=== PATIENT | female | born 1980 | race Caucasian/White ===

== ENCOUNTER → 2020-11-23 16:15 | Outpatient (CLI) | payer BC, SELFPAY ==
--- NOTE | ~2020-11-23 | MM_ITS ---
EXAMINATION: MM screening betsy BI w salome HISTORY: Screening mammogram TECHNIQUE: Craniocaudal and mediolateral oblique 3-D tomosynthesis images were obtained and synthetic 2-D images were generated. CAD analysis was submitted and interpreted. COMPARISON: None, baseline BREAST PARENCHYMAL COMPOSITION: There are scattered areas of fibroglandular density. FINDINGS: RIGHT BREAST: There is no evidence of suspicious mass, calcification, or architectural distortion to suggest malignancy. LEFT BREAST: Focal asymmetry is present in the middle/posterior third of the lower, slightly outer br east. IMPRESSION: 1. Focal asymmetry of the left breast. 2. Additional mammographic views and possible breast ultrasound are recommended to evaluate for malig vinny and establish a baseline given that this is the first mammographic examination. BI-RADS Category 0: Incomplete: Needs additional imaging evaluation. Reviewed, dictated and finalized at location A. IMPRESSION: 1. Focal asymmetry of the left breast. 2. Additional mammographic views and possible breast ultrasound are recommended to evaluate for malignancy and establish a baseline given that this is the fir st mammographic examination. BI-RADS Category 0: Incomplete: Needs additional imaging evaluation.
== END ==
PROVIDERS: Visit Provider Nurse Practitioner
DX: Z12.31 Encounter for screening mammogram for malignant neoplasm of breast (principal); R92.8 Other abnormal and inconclusive findings on diagnostic imaging of breast
CPT/HCPCS: 77063; 77067

== ENCOUNTER → 2020-12-23 09:58 | Outpatient (CLI) | payer BC, SELFPAY ==
--- NOTE | ~2020-12-23 | MM_ITS ---
EXAMINATION: MM diagnostic mammo unilat LT HISTORY: Focal asymmetry of the left breast Baseline screening mammogram TECHNIQUE: Additional 3-D tomosynthesis images of the left breast were performed and synthetic 2-D im ages were generated. CAD analysis was submitted and interpreted. COMPARISON: 11/23/2020 BREAST PARENCHYMAL COMPOSITION: There are scattered areas of fibroglandular density. FINDINGS: With spot compression, the focal asymmetry described lower outer left breast screening mamm ogram has an appearance similar to normal fibroglandular tissue. No suspicious calcification or archi tectural distortion are identified. IMPRESSION: 1. No mammographic evidence of malignancy. 2. Recommend routine screening mammography in one year. BI-RADS Category 1: Negative Reviewed, dictated and finalized at location A.
== END ==
PROVIDERS: PCP Nurse Practitioner; Visit Provider Nurse Practitioner
DX: R92.8 Other abnormal and inconclusive findings on diagnostic imaging of breast (principal)
CPT/HCPCS: 77065

== ENCOUNTER 2021-07-26 01:57 | Day surgery (SDC) | payer BC, SELFPAY ==
[2021-07-01 13:45] VITALS: BMI 45.2
--- NOTE | 2021-07-01 14:01 | PC.NURSE ---
Patient states she tested positive for COVID on 06/24. Informed her that she will need to be rescheduled 4 weeks out from her positive COVID test. Handed report to Janice who will contact patient to reschedule and gather tests results.
--- NOTE | 2021-07-23 14:56 | PM.HPGS ---
History of Present Illness History of Present Illness Consent: Risks, benefits, and alternatives have been discussed and questions answered. Patient agrees to proceed with procedure. Chief complaint: rectal bleedding Narrative: Bree Donaldson is a 40 year old female with a change in bowel habits and blood in her stools. She has had issues lately with constipation and on off has had rectal bleeding for the past several months. Review of Systems Review of Systems: All systems reviewed & are unremarkable except as noted in HPI and below PMFSH Past Medical History Medical History Generalized anxiety disorder Hyperlipidemia Migraines Vitamin D deficiency Surgical History Surgical History History of section History of cholecystectomy Family History Family History Other Diabetes mellitus Family history of cardiovascular disease Hypertension Social History Social History Smoking status: Never smoker Second hand tobacco smoke exposure: No Alcohol intake: current Alcohol use details: on occasion Substance use: never Substance use type: does not use Living arrangements: with family Meds Home Medications and Allergies Home Medications Medication Instructions Recorded Confirmed Type duloxetine 30 mg capsule,delayed 30 mg PO DAILY #90 cap 01/22/21 07/26/21 Rx release montelukast 10 mg tablet 10 mg PO DAILY #90 tablet 01/22/21 07/26/21 Rx eletriptan 20 mg tablet See Rx Instructions PO .COMPLEX #6 04/16/21 07/26/21 Rx tablet liraglutide (weight loss) 3 mg/0.5 0.6 mg SUBCUT DAILY 05/28/21 07/26/21 History mL (18 mg/3 mL) subcut pen injector Allergies Allergy/AdvReac Type Severity Reaction Status Date / Time Penicillins Allergy Intermediate Rash Verified 07/26/21 08:09 Exam Resp: Auscultation: clear to auscultation bilaterally Cardio: Rate: regular rate Rhythm: regular rhythm GI: GI Palp: Yes Soft to palpation and No Tenderness to palpation present (GI) Assessment and Plan Assessment and plan (1) Blood in stool: Code(s): K92.1 - Melena Status: Acute Assessment and Plan: Colonoscopy with possible biopsy or polypectomy or cautery or injection of substances.
[2021-07-26 08:11] VITALS: BP 120/74; PULSE 83; RESP 16; TEMP 36.5; O2SAT 97
[2021-07-26] MEDS: LACTATED RINGERS 1,000 ML 150 ML IV CONT (08:25)
[2021-07-26 09:09] VITALS: BP 110/75; PULSE 79; RESP 19; O2SAT 98
[2021-07-26 09:19] VITALS: BP 107/75; PULSE 76; RESP 19; O2SAT 99
[2021-07-26 09:29] VITALS: BP 112/78; PULSE 70; RESP 20; O2SAT 100
== END 2021-07-26 09:39 | disposition home or self-care (01) ==
PROVIDERS: PCP Nurse Practitioner; Visit Provider Internal Medicine Gastroenterology
PROC: 0DJD8ZZ Inspection of Lower Intestinal Tract, Via Natural or Artificial Opening Endoscopic (ICD-10-PCS; CPT 45378; principal; 2021-07-26 09:00)
DX: R19.7 Diarrhea, unspecified (principal); K59.00 Constipation, unspecified; K92.1 Melena; K64.8 Other hemorrhoids; E78.5 Hyperlipidemia, unspecified; E55.9 Vitamin D deficiency, unspecified; F41.1 Generalized anxiety disorder
CPT/HCPCS: 45378; J2704; J7120

== ENCOUNTER 2023-09-19 07:04 | Outpatient (CLI) | payer BC, SELFPAY ==
[2023-09-19 07:31] LABS: Hematocrit 38.1 % (37.0-47.0); Hemoglobin 12.5 g/dL (12.0-15.0); Mean Corpuscular HGB Conc 32.8 g/dl (32-36); Mean Corpuscular Hemoglobin 30.5 pg (26-34); Mean Corpuscular Volume 92.9 fl (80-100); Mean Platelet Volume 9.6 fl (7.4-10.4); Platelet Count Result 324 k/mm3 (150-375); Red Cell Distribution Width 12.3 % (11.5-14.5); White Blood Count 5.5 K/mm3 (4.5-10.0)
[2023-09-19 07:49] LABS: Albumin Level 4.2 g/dL (3.5-5.1); Anion Gap 6 mmol/L (4-12); Blood Urea Nitrogen 13 mg/dL (7-17); Calcium 9.2 mg/dL (8.4-10.2); Carbon Dioxide 27 mmol/L (22-30); Chloride 104 mmol/L (98-107); Estimated Glomerular Filt Rate > 60; Glucose 97 mg/dL (65-110); Potassium 4.1 mmol/L (3.4-5.0); Sodium 137 mmol/L (137-145)
[2023-09-19 07:52] LABS: Iron 162 ug/dL (37-170)
[2023-09-22 14:32] LABS: Vitamin B1 8 nmol/L (8-30)
== END 2023-09-19 07:05 | disposition home or self-care (01) ==
LOC: ANHLAB 07:06
PROVIDERS: PCP Nurse Practitioner; Visit Provider Surgery Plastic and Reconstructive Surgery
DX: R63.4 Abnormal weight loss (principal)
CPT/HCPCS: 36415; 80048; 82040; 83540; 84134; 84425; 85027

== ENCOUNTER 2023-10-11 13:08 | Outpatient (CLI) | payer OTHER, SELFPAY ==
--- NOTE | 2023-10-11 13:26 | ECG_ITS ---
SEE SCANNED COPY FOR CONFIRMED REPORT. MTDD
== END 2023-10-11 13:09 | disposition home or self-care (01) ==
LOC: ANHSURGERY 13:12
PROVIDERS: Visit Provider Surgery Plastic and Reconstructive Surgery
DX: Z41.1 Encounter for cosmetic surgery (principal)
CPT/HCPCS: 93005

== ENCOUNTER 2023-10-13 01:38 | Day surgery (SDC) | payer OTHER, SELFPAY ==
[2023-10-10 12:42] VITALS: BMI 32.9
--- NOTE | 2023-10-10 12:48 | PC.NURSE ---
Report to the Outpatient Waiting Room, entrance under the green pavilion located off [facility], at time _0630_ on date _[id number]_. Planned Procedure Time: _0830_. Time changes happen often and if your time is changed the preop area will call you the afternoon before. - You and your visitor will be asked to self-screen and do not enter if you have any COVID symptoms. - A mask is optional within the hospital at this time. Patients may have clear liquids (water, carbonated beverages, clear teas, apple juice) until 3 hours prior to surgery with a maximum of 20 ounces. - No food from midnight until time of surgery Take the following medications with a SIP of water the morning of surgery: __Duloxetine DO NOT STOP ANY OF YOUR OTHER PRESCRIPTION MEDICATIONS PRIOR TO SURGERY ?EXCEPT THE FOLLOWING Medications to discontinue per physician ____patient stopped Semaglutide 08-26-2023 for surgery. Date to take last dose Please no make-up, nail finnish, hairspray, perfume, deodorant, or body powder the day of surgery. No jewelry (including any body piercings) or valuables the day of surgery, leave them at home. Please take a shower or bath the night before, or the morning of, surgery with an antibacterial soap. Wear comfortable, loose fitting clothing. - Jewelry must be removed prior to entering the operating room. Rings and piercings that are not removed may be cut off. - The hospital will not accept responsibility for valuables. - Please leave all valuables, including medications, at home the day of surgery. If you are going home after surgery, a licensed coal tram driver must drive you home. - NO public transportation without another adult if you receive anesthesia. - We recommend that an adult stay with you for 24 hours following discharge. - We also recommend that you do not drive, make important decision, drink alcoholic beverages, or take any drugs that were not prescribed by your health care provider for at least 24 hours after your discharge time. Follow any additional instructions given to you from your surgeon. If you or anyone in your household have experienced Covid symptoms in the past week, please notify your surgeon or the nurse liaison at the phone number below for possible testing. Telephone instructions given to _Bree__and asked if any additional questions and then verbalized understanding. Patient advised to call surgeon office or pre surgery nurse liaison [phone] if any additional questions.
[2023-10-13] VITALS (10 sets, daily range): BP systolic 106–157; BP diastolic 75–92; PULSE 70–93; RESP 14–18; TEMP 36.2–36.9; O2SAT 95–100
[2023-10-13 06:55] LABS: Urine Cotinine NEGATIVE
[2023-10-13] MEDS: LACTATED RINGERS 1,000 ML 30 ML IV CONT ×2 (07:24→15:52)
--- NOTE | 2023-10-13 07:26 | WPDANESEPPF ---
Anes - Initial Pre Proc Eval Procedure: Operation Date: 10/13/23 08:30 Proposed Procedures p Bilateral Brachioplasty - Perry Webber MD s Bilateral Breast Augmentation with Excision of Bra Roll - Perry Webber MD s Bilateral Breast Mastopexy with Galaflex - Perry Webber MD Date/Time: 10/13/23 07:26 Surgeon: Perry Webber MD Pre Op Diagnosis: Breast Ptosis, Skin Laxity Patient Data Age: 43 Gender: F Height: 1.7 m Weight: 97 kg Last Vital Signs Temp 97.2 F L 10/13/23 07:21 Pulse 77 10/13/23 07:21 Resp 18 10/13/23 07:21 BP 106/75 10/13/23 07:21 Pulse Ox 100 10/13/23 07:21 O2 Del Method Room Air 10/13/23 07:21 Allergies Allergy/AdvReac Type Severity Reaction Status Date / Time Penicillins Allergy Intermediate Rash Verified 10/10/23 12:40 Home Medications Medication Instructions Recorded Confirmed Type ondansetron 4 mg disintegrating 4 mg PO Q6H PRN vertigo #30 tabs 08/06/21 10/10/23 Rx tablet duloxetine 30 mg capsule,delayed 30 mg PO DAILY #90 caps 12/22/21 10/10/23 Rx release eletriptan 20 mg tablet See Rx Instructions .Route 05/09/22 10/10/23 Rx .COMPLEX #6 tabs montelukast 10 mg tablet 10 mg PO DAILY #30 tabs 12/07/22 10/10/23 Rx semaglutide (weight loss) 2.4 2.4 mg subcut WEEKLY 10/10/23 10/10/23 History mg/0.75 mL subcutaneous pen injector (Wegovy) Laboratory Tests 10/13/23 06:39 Cotinine Negative Patient hx anesthesia problems: none Family hx anesthesia problems: none Results Review: All pre-operative results and documents have been reviewed as part of the pre-operative evaluation. [facility] Past Medical History Medical History BPPV (benign paroxysmal positional vertigo) Generalized anxiety disorder Hyperlipidemia Migraines Vitamin D deficiency Surgical History Surgical History History of section History of cholecystectomy Family History Family History Other Diabetes mellitus Family history of cardiovascular disease Hypertension Social History Social History Smoking status: Never smoker Second hand tobacco smoke exposure: No Alcohol intake: current Alcohol use details: on occasion Substance use: never Substance use type: does not use Living arrangements: with family Spiritual care concerns: No Anes - Eval Final PreProcedure Day of Procedure 10/13/23 07:26 Patient weight: obese Heart: regular rate and rhythm Lungs: clear to auscultation Airway: Mallampati scale class II Neurological: alert and oriented Last oral intake: >/= 8 hours ASA classification: III Emergent: no Anesthetic plan: proceed Anesthesia type and monitoring: general ETT and standard monitoring Results Review: All pre-operative results and documents have been reviewed as part of the pre-operative evaluation. Informed Consent: The patient's anesthetic plan and its attendant risks and benefits were discussed with the patient/family/POA. Questions were solicited and answers provided to the satisfaction of the patient/family/POA.
--- NOTE | 2023-10-13 08:41 | WPDHPUPDATE1 ---
History and Physical Update Update Date/Time: 10/13/23 08:41 History and Physical has been reviewed, including an updated exam of the patient. There are NO changes in the patient's condition. Risks, benefits, and alternatives have been discussed and questions answered. Patient agrees to proceed with procedure.
--- NOTE | 2023-10-13 08:44 | W.PM.PROC2 ---
Procedure Note - Detailed Date of Procedure 10/13/23 Pre-op Diagnosis Breast Ptosis, Skin Laxity Post-op Diagnosis Same Procedure Performed 1. Bilateral Augmentation Mammaplasty with Galaflex 2. Bilateral Brachioplasty 3. Bilateral bra roll excision Surgeon Perry Webber MD Anesthesia General Findings Bilateral Suyapa SoftTouch 490cc Right - REF# [id number] SN [sn] Left - REF# [id number] SN [sn] Inverted T Superior medial pedicle Lipoaspirate: [cc] cc Tissue removed: [grams] grams Description of Procedure She is here today for the above. Previously and again today the risks, benefits, alternatives were discussed in extensive detail. I wanted her to be very realistic about the risks involved as well as expectations. We discussed aftercare and what to monitor for. Made sure answered all of her questions to her satisfaction today and consent was obtained. Marked in the preoperative holding area with their verification. The patient was taken to the operating room. Anesthesia provided by anesthesiology. Transferred prone on the operating room table with care taken to protect from injury. Prepped and draped in a standard sterile fashion. Surgical time out was taken. Bra Roll Stab incisions were made and I tumesced with a tumescent solution. Once adequate time for hemostasis suction lipectomy was with a 4 mm basket cannula based on S.A.F.E. technique. This was completed based on preoperative planning, intraoperative observation, and rolling pinch test which was in full agreement. A 10 blade was used to make the upper excision elevating inferior. I verified the planned resection and a 10 blade was used to complete this. This was closed using 2-0 PDS 3 point sutures, 2-0 Quill, 3-0 strata fix, running subcuticular 4-0 Monocryl, and tissue glue. Brachioplasty She was returned supine with care taken to protect from injury and prepped and draped in standard sterile fashion. Stab incisions were made and I tumesced with a tumescent solution. Once adequate time for hemostasis suction lipectomy was with a 4 mm basket cannula based on S.A.F.E. technique. This was completed based on preoperative planning, intraoperative observation, and rolling pinch test which was in full agreement. I completely de-fatted the planned resection area and a strip avulsion technique was completed. Starting proximal to distal a 10 blade was used to excise the intervening skin and this was tacked as we proceed to ensure good closure. This was closed using a 2-0 Quill, 3-0 strata fix, running subcuticular 4-0 Monocryl, and tissue glue. Breast I changed completely to ensure sterility. Tegaderm nipple Cosby were placed. A 15 blade used to make an incision just superior to the inframammary fold leaving a cusp of de-epithelized tissue at the t junction. Dissection was continued until the chest wall as identified. I incised the pectoralis major along its inferior border and completely released the inferior border leaving the medial border intact. I created a subpectoral pocket in the appropriate dimensions based on our preoperative planning for the implant. I then copiously irrigated with saline solution and verified a strict hemostasis. Next the use a triple antibiotic and Betadine containing solution to irrigate the pocket. I washed my gloves with the triple antibiotic and Betadine solution. We washed the implant immediately upon opening it with this solution and only opened it when we needed it. I used implant funnel and no-touch technique. The implant was introduced into the pocket using the funnel. Having verified positioning of the implant this was closed using 2-0 PDS. I tailor tacked the breast into position. Placed her in a sitting position. Verified the nipple-areolar location based on preoperative planning as well as intraoperative observations and measurements in full agreement. She was placed supine. I de-epithelialized the
[2023-10-13] MEDS: TRANEXAMIC ACID 1,000MG/ISO100 1,000 MG/100 ML BAG 200 MG IVPB (08:57)
[2023-10-13] MEDS: ceFAZolin 2 GM/D5W 50 ML 2 GM/50 ML BAG IVPB (09:32)
[2023-10-13] MEDS: NACL 0.9% IRRIG POUR BOTTLE 900 ML, GENTAMICIN SULFATE INJ 160 MG, CLINDAMYCIN PHOS INJ... IRRIGATION (09:42)
--- NOTE | 2023-10-13 11:31 | SUR.OPER ---
posterior back [id number] to [id number]
--- NOTE | 2023-10-13 11:50 | SUR.OPER ---
right breast implant to sterile field 1135 left breast implant to sterile field 1159
--- NOTE | 2023-10-13 11:56 | SUR.OPER ---
galflex scaffold lot [id number], EXP 2024-10-09, REF [id number] TO THE [facility] FIELD [facility]
[2023-10-13] MEDS: ceFAZolin SODIUM 1 GM VIAL 2 GM IV PUSH (13:30)
[2023-10-13] MEDS: LACTATED RINGERS IRRIG 1,000 ML, LIDOCAINE HCL 1% LOCAL INJ 50 ML, EPINEPHrine HCL INJ ... INFILTRATE (14:02)
--- NOTE | 2023-10-13 15:47 | W.PM.PROC2 ---
Procedure Note - Detailed Date of Procedure 10/13/23 Pre-op Diagnosis Breast Ptosis, Skin Laxity Post-op Diagnosis Same Procedure Performed 1.? Bilateral Augmentation Mastopexy with Galaflex 2.? Bilateral Brachioplasty 3.? Bilateral bra roll excision Surgeon Perry Webber MD Anesthesia General Findings Bilateral Suyapa SoftTouch 490cc Right - REF# SSLP-490 SN [id number] Left - REF# SSLP-490 SN [id number] Inverted T Superior pedicle Lipoaspirate: 2,000 cc Tissue removed: 1,303 grams Description of Procedure She is here today for the above.? Previously and again today the risks, benefits, alternatives were discussed in extensive detail.? I wanted her to be very realistic about the risks involved as well as expectations.? We discussed aftercare and what to monitor for.? Made sure answered all of her questions to her satisfaction today and consent was obtained. Marked in the preoperative holding area with their verification.? The patient was taken to the operating room.? Anesthesia provided by anesthesiology.? Transferred prone on the operating room table with care taken to protect from injury.? Prepped and draped in a standard sterile fashion. Surgical time out was taken. Bra Roll Stab incisions were made and I tumesced with a tumescent solution.? Once adequate time for hemostasis suction lipectomy was with a 4 mm basket cannula based on S.A.F.E. technique.? This was completed based on preoperative planning, intraoperative observation, and rolling pinch test which was in full agreement.? A 10 blade was used to make the upper excision elevating inferior.? I verified the planned resection and a 10 blade was used to complete this.? This was closed using 2-0 PDS 3 point sutures, 2-0 Quill, 3-0 strata fix, running subcuticular 4-0 Monocryl, and tissue glue. She was returned supine with care taken to protect from injury and prepped and draped in standard sterile fashion. Breast Tegaderm nipple Cosby were placed.? A 15 blade used to make an incision just superior to the inframammary fold leaving a cusp of de-epithelized tissue at the t junction.? Dissection was continued until the chest wall as identified.? I incised the pectoralis major along its inferior border and completely released the inferior border leaving the medial border intact. I created a subpectoral pocket in the appropriate dimensions based on our preoperative planning for the implant. I then copiously irrigated with saline solution and verified a strict hemostasis. Next the use a triple antibiotic and Betadine containing solution to irrigate the pocket.? I washed my gloves with the triple antibiotic and Betadine solution.? We washed the implant immediately upon opening it with this solution and only opened it when we needed it.? I used implant funnel and no-touch technique. The implant was introduced into the pocket using the funnel.? Having verified positioning of the implant this was closed using 2-0 PDS. I tailor tacked the breast into position.? Placed her in a sitting position.? Verified the nipple-areolar location based on preoperative planning as well as intraoperative observations and measurements in full agreement.? She was placed supine.? I de-epithelialized the pedicle.? I then removed the inferior central portion of the breast need making sure the implant was well protected.? I elevated medial and lateral tissue flaps as well for planned closure. Galaflex was soaking on the back table.? It was trimmed and sutured into place with 2-0 Vicryl. I closed along the IMF with 2-0 Stratafix.? Along the vertical with 2-0 PDS.? I closed around the areola with 3-0 strata fix.? 3-0 Monocryl along the vertical.? 3-0 Stratafix along the IMF.? I finally closed everything with running subcuticular 4-0 Monocryl and tissue glue. Brachioplasty Stab incisions were made and I tumesced with a tumescent solution.? Once adequate time for hemostasis suction lipectomy was with a 4 mm basket
[2023-10-13] MEDS: fentaNYL CITRATE INJ (*CRX) 100 MCG/2 ML VIAL 25 MCG IV PUSH ×3 (16:10→16:35)
[2023-10-13] MEDS: ONDANSETRON INJ 4 MG/2 ML VIAL IV PUSH (16:13)
[2023-10-13] MEDS: diphenhydrAMINE HCl INJ 50 MG/ML VIAL 25 MG IV PUSH (16:28)
[2023-10-13] MEDS: SCOPOLAMINE 1 MG PATCH 1 PATCH TRANSDERM (17:31)
[2023-10-13] MEDS: diphenhydrAMINE HCl INJ 50 MG/ML VIAL 12.5 MG IV PUSH (17:34)
[2023-10-13] MEDS: KETOROLAC 15 MG/ML VIAL (*BKC) IV PUSH (17:40)
[2023-10-13] MEDS: oxyCODONE HCL (*CRX) 5 MG TAB IR PO (17:40)
--- NOTE | 2023-10-13 17:47 | SUR.PHASEII ---
1734 DR. RAE CALLED RE: TORADOL FOR PATIENT WHICH HE OKAY'D TO GIVE.
== END 2023-10-13 18:38 | disposition home or self-care (01) ==
PROVIDERS: Visit Provider Surgery Plastic and Reconstructive Surgery
PROC: (CPT 15836; principal; 2023-10-13 08:30)
PROC: (CPT 19325; 2023-10-13 08:30)
PROC: (CPT 19316; 2023-10-13 08:30)
DX: Z41.1 Encounter for cosmetic surgery (principal); N64.81 Ptosis of breast; L57.4 Cutis laxa senilis; E78.5 Hyperlipidemia, unspecified; F41.1 Generalized anxiety disorder; E66.9 Obesity, unspecified; Z68.33 Body mass index [BMI] 33.0-33.9, adult
CPT/HCPCS: 19325; 19316; 15777 ×2; 15836; 15839; 15878; 15877; 80307; A9270; J0171; J0690; J1170; J1200; J1580; J1885; J2250; J2405; J3010; J7120

== ENCOUNTER 2023-10-29 19:30 | Emergency (ER) | payer BC, SELFPAY ==
--- NOTE | ~2023-10-29 | CT_ITS ---
Clinical Indication: Shortness of breath CT Scan of the Chest with Contrast: Technique: Contiguous sections were acquired throughout the chest after intravenous administration of 100 cc of Omnipaque 350. Dose reduction technique was used on this scan by utilizing automated expos ure control and iterative reconstruction technique. The dose-length product (DLP) was 994.87 mGy-cm. Findings: There is no evidence of any significant mediastinal, hilar or axillary lymphadenopathy. There is no f illing defect in the pulmonary arterial tree to suggest pulmonary embolus. There is no evidence of ao rtic dissection or aneurysm. There is no evidence of pleural or pericardial effusion. The lungs are clear, aside from calcified right lower lobe granuloma. Images through the upper abdomen reveal no abnormalities. Impression: No evidence of pulmonary embolus, aortic dissection, or aortic aneurysm. No significant pulmonary abnormality. Reviewed, dictated and finalized at [facility]. Impression: No evidence of pulmonary embolus, aortic dissection, or aortic aneurysm. No significant pulmonary abnormality.
--- NOTE | ~2023-10-29 | XR_ITS ---
EXAMINATION: XR chest 2V Exam Date/Time: 10/29/2023 20:00 CDT HISTORY: sob, cp under left breast. recent cosmetic surgery to chest Comparison: CT abdomen pelvis 08/25/2017. RESULT: Lines, tubes, and devices: Cholecystectomy clips. Lungs and pleura: Clear. Calcified right midlung granuloma. Cardiomediastinal silhouette: Unremarkable. Other: No acute osseous or upper abdominal finding. IMPRESSION: No acute cardiopulmonary process. Reviewed, dictated and finalized at location K.
--- NOTE | 2023-10-29 19:31 | ECG_ITS ---
SEE SCANNED COPY FOR CONFIRMED REPORT. MTDD
[2023-10-29 19:54] VITALS: BP 126/87; PULSE 87; PULSE 88; RESP 22; TEMP 36.9; O2SAT 100
[2023-10-29 19:56] LABS: Basophils Absolute Auto 0.1 K/mm3 (0.0-0.1); Basophils Percent Auto 1.3 % (0.2-1.2); Eosinophils Absolute Auto 0.2 K/mm3 (0-0.3); Eosinophils Percent Auto 1.8 % (0-4.4); Hematocrit 35.8 % (37.0-47.0); Hemoglobin 12.1 g/dL (12.0-15.0); Immature Granulocyte Absolute 0.03 K/mm3 (0.00-0.031); Immature Granulocyte Percent A 0.3 % (0-0.5); Lymphocytes Absolute Auto 2.01 K/mm3 (0.9-3.2); Lymphocytes Percent Auto 22.9 % (18.3-44.2); Mean Corpuscular HGB Conc 33.8 g/dl (32-36); Mean Corpuscular Hemoglobin 30.8 pg (26-34); Mean Corpuscular Volume 91.1 fl (80-100); Mean Platelet Volume 9.5 fl (7.4-10.4); Monocytes Absolute Auto 0.7 K/mm3 (0.1-0.6); Monocytes Percent Auto 8.4 % (2.6-8.5); Neutrophils Absolute Auto 5.7 K/mm3 (1.3-6.7); Neutrophils Percent Auto 65.3 % (45.5-73.1); Platelet Count Result 380 k/mm3 (150-375); Red Blood Count 3.93 M/mm3 (4.2-5.4); White Blood Count 8.8 K/mm3 (4.5-10.0)
[2023-10-29 20:08] LABS: Alanine Aminotransferase 24 U/L (6-35); Albumin Level 4.4 g/dL (3.5-5.1); Alkaline Phosphatase 72 U/L (38-126); Anion Gap 10 mmol/L (4-12); Aspartate Amino Transferase 23 U/L (14-36); Bilirubin,Total 0.7 mg/dL (0.2-1.3); Blood Urea Nitrogen 13 mg/dL (7-17); Calcium 9.1 mg/dL (8.4-10.2); Carbon Dioxide 19 mmol/L (22-30); Chloride 105 mmol/L (98-107); Estimated CRCL calculation 143 ml/min; Estimated Glomerular Filt Rate > 60; Glucose 112 mg/dL (65-110); Potassium 3.8 mmol/L (3.4-5.0); Sodium 134 mmol/L (137-145)
[2023-10-29 20:23] LABS: Prothrombin Time 13.5 Seconds (11.1-14.7)
[2023-10-29 20:24] LABS: Partial Thromboplastin Time 30.7 Seconds (22.3-36.8)
[2023-10-29 20:25] VITALS: BP 110/88; PULSE 87; RESP 14; O2SAT 99
[2023-10-29 20:30] LABS: D Dimer 0.95 ug/mL (<0.48)
[2023-10-29 20:31] VITALS: BP 106/83; PULSE 83; RESP 15; O2SAT 99
[2023-10-29 20:46] LABS: Troponin I < 0.012 ng/mL (0.000-0.034)
--- NOTE | 2023-10-29 21:09 | ED.SOB ---
HPI - SOB/Dyspnea General Chief Complaint: Shortness of Breath/Dyspnea Stated Complaint: plastic surgery - sob with cp under left breast Time Seen by Provider: 10/29/23 19:44 Source: patient Mode of arrival: ambulatory Limitations: no limitations History of Present Illness HPI Narrative: This is a 43-year-old female that presents to the emergency department for shortness of breath. Ongoing since earlier this morning. Associated with pleuritic chest pain. Reports a recent plastic surgery. Presented to the ER out of concern for possible blood clot. Reports she was on Lovenox prophylactically for a week postop. She does not have personal history of blood clots, but has family history of this. Denies fevers, cough, or lower extremity edema. Related Data Home Medications Medication Instructions Recorded Confirmed semaglutide (weight loss) 2.4 2.4 mg subcut WEEKLY 10/10/23 10/10/23 mg/0.75 mL subcutaneous pen injector (Wegovy) Allergies Allergy/AdvReac Type Severity Reaction Status Date / Time Penicillins Allergy Intermediate Rash Verified 10/29/23 19:34 Review of Systems Review of Systems: CONSTITUTIONAL: Denies fever CARDIOVASCULAR: Reports chest pain. Denies edema. RESPIRATORY: Reports dyspnea. Denies cough All systems reviewed & are unremarkable except as noted in HPI and below PMFSH Past Medical History Medical History BPPV (benign paroxysmal positional vertigo) Generalized anxiety disorder Hyperlipidemia Migraines Vitamin D deficiency Surgical History Surgical History History of section History of cholecystectomy Family History Family History Other Diabetes mellitus Family history of cardiovascular disease Hypertension Social History Social History Smoking status: Never smoker Second hand tobacco smoke exposure: No Alcohol intake: current Alcohol use details: on occasion Substance use: never Substance use type: does not use Living arrangements: with family Spiritual care concerns: No Exam Narrative: GENERAL: Well-appearing, well-nourished, and in no acute distress. HEAD: Normocephalic, atraumatic. EYES: EOMI. NECK: No JVD CHEST: Clear to auscultation. No respiratory distress. No wheezes rales or rhonchi. Incisions are intact without abnormal drainage, or erythema HEART: Regular rate and rhythm. No murmur heard. Normal peripheral pulses. EXTREMITIES: Normal range of motion. No edema. SKIN: Warm, dry, no rash. NEURO: No focal deficits. Alert and oriented x3. PSYCH: Normal mood and affect Course Course Emergency Course: Patient updated on her workup and agrees with plan of care Vital Signs Vital signs: Vital Signs Temperature 98.5 F 10/29/23 19:54 Pulse Rate 88 10/29/23 19:54 Respiratory Rate 22 H 10/29/23 19:54 Blood Pressure 126/87 10/29/23 19:54 Pulse Oximetry 100 10/29/23 19:54 Oxygen Delivery Room Air 10/29/23 19:54 Temperature 98.5 F 10/29/23 19:54 Pulse Rate 79 10/30/23 00:35 Respiratory Rate 16 10/30/23 00:35 Blood Pressure 114/93 H 10/30/23 00:35 Pulse Oximetry 96 10/30/23 00:35 Oxygen Delivery Room Air 10/29/23 19:54 MDM - SOB/Dyspnea MDM Narrative Medical decision making narrative: Patient presents to the emergency department for shortness of breath and pleuritic chest pain after recent plastic surgery. Ongoing since earlier this morning. She is afebrile and nontoxic appearing. Her vitals are stable. Lungs are clear on exam. Oxygen saturation is normal on room air. CBC without leukocytosis. Metabolic panel with some evidence of mild dehydration. Patient given a L of IV fluids in the ED. D-dimer elevated, CTA of the chest obtained. No evidence for PE or acute ca
[2023-10-29] MEDS: SODIUM CHLORIDE 0.9% IV 1,000 ML 999 ML IV CONT (21:47)
[2023-10-29 21:53] VITALS: BP 105/85; PULSE 77; RESP 20; O2SAT 98
[2023-10-29 22:31] VITALS: BP 107/85; PULSE 78; RESP 20; O2SAT 100
[2023-10-30 00:35] VITALS: BP 114/93; PULSE 79; RESP 16; O2SAT 96
[2023-10-30] MEDS: KETOROLAC 15 MG/ML VIAL (*BKC) IV PUSH (01:17)
== END 2023-10-30 01:30 | disposition home or self-care (01) ==
PROVIDERS: Family Medicine; Emergency Provider Physician Assistant
DX: R07.9 Chest pain, unspecified (principal); F41.9 Anxiety disorder, unspecified; E78.5 Hyperlipidemia, unspecified
CPT/HCPCS: 36415; 71046; 71275; 80053; 81025; 84484; 85025; 85380; 85610; 85730; 93005; 96361; 96374; 99284; J1885; J7030; Q9967

== ENCOUNTER 2024-03-15 04:25 | Day surgery (SDC) | payer BC, SELFPAY ==
[2024-03-07 14:42] VITALS: BMI 33.0
--- NOTE | 2024-03-07 14:49 | PC.NURSE ---
Report to the Outpatient Waiting Room, entrance under the green pavilion located off [facility], at time _0715_ on date _[id number]_. Planned Procedure Time: _0915_.? Time changes happen often and if your time is changed the preop area will call you the afternoon before. - You and your visitor will be asked to self-screen and do not enter if you have any COVID symptoms. Please call surgeon if you need to reschedule. - A mask is optional within the hospital at this time. Patients may have clear liquids (water, carbonated beverages, clear teas, apple juice) until 3 hours prior to surgery with a maximum of 20 ounces. - No food from midnight until time of surgery and no smoking Take only the following medications with a SIP of water on the morning of surgery: __Duloxetine DO NOT STOP ANY OF YOUR OTHER PRESCRIPTION MEDICATIONS PRIOR TO SURGERY EXCEPT THE FOLLOWING Medications to discontinue per physician Hold Wegovy dose this week. Date to take last dose Please no make-up, nail samoan, hairspray, perfume, deodorant, or body powder the day of surgery.? No jewelry (including any body piercings) or valuables the day of surgery, leave them at home.? Please take a shower or bath the night before, or the morning of, surgery with an antibacterial soap.? Wear comfortable, loose fitting clothing.? - Jewelry must be removed prior to entering the operating room.? Rings and piercings that are not removed may be cut off. - The hospital will not accept responsibility for valuables.? - Please leave all valuables, including medications, at home the day of surgery. If you are going home after surgery, a licensed pickup driver must drive you home.? - NO public transportation without another adult if you receive anesthesia. - We recommend that an adult stay with you for 24 hours following discharge. - We also recommend that you do not drive, make important decision, drink alcoholic beverages, or take any drugs that were not prescribed by your health care provider for at least 24 hours after your discharge time. Follow any additional instructions given to you from your surgeon. Telephone instructions given to __Rafyy__and asked if any additional questions and then verbalized understanding. Patient advised to call surgeon office or pre surgery nurse liaison [phone] if any additional questions.
--- NOTE | 2024-03-10 17:29 | PM.IMHP ---
H&P: HPI History of Present Illness Date/Time: 03/10/24 17:29 Chief Complaint: stress incontinence Narrative: presents for surgical correction of stress incontinence Review of Systems Review of Systems: All systems reviewed & are unremarkable except as noted in HPI and below PMFSH Past Medical History Medical History BPPV (benign paroxysmal positional vertigo) Generalized anxiety disorder Hyperlipidemia Migraines Vitamin D deficiency Surgical History Surgical History History of section History of cholecystectomy Family History Family History Other Diabetes mellitus Family history of cardiovascular disease Hypertension Social History Social History Smoking status: Never smoker Second hand tobacco smoke exposure: No Alcohol intake: current Alcohol use details: on occasion Substance use: never Substance use type: does not use Living arrangements: with family Spiritual care concerns: No Meds Home Medications and Allergies Home Medications Medication Instructions Recorded Confirmed Type ondansetron 4 mg disintegrating 4 mg PO Q6H PRN vertigo #30 tabs 08/06/21 03/07/24 Rx tablet duloxetine 30 mg capsule,delayed 30 mg PO DAILY #90 caps 12/22/21 03/07/24 Rx release eletriptan 20 mg tablet See Rx Instructions .Route 05/09/22 03/07/24 Rx .COMPLEX #6 tabs montelukast 10 mg tablet 10 mg PO DAILY #30 tabs 12/07/22 03/07/24 Rx semaglutide (weight loss) 2.4 2.4 mg subcut WEEKLY 10/10/23 03/07/24 History mg/0.75 mL subcutaneous pen injector (Wegovy) Allergies Allergy/AdvReac Type Severity Reaction Status Date / Time Penicillins Allergy Intermediate Rash Verified 03/07/24 14:41 Exam Narrative: urethral hypermobility documented Assessment and Plan Assessment and plan (1) REY (stress urinary incontinence, female): Code(s): N39.3 - Stress incontinence (female) (male) Status: Acute Assessment and Plan: plan for urethral sling. Risks, benefits, alternatives all outlined in office chart
[2024-03-15] VITALS (8 sets, daily range): BP systolic 95–106; BP diastolic 56–88; PULSE 56–92; RESP 10–18; TEMP 36.2; O2SAT 94–100; BMI 33.6
--- NOTE | 2024-03-15 07:18 | WPDHPUPDATE1 ---
History and Physical Update Update Date/Time: 03/15/24 07:18 History and Physical has been reviewed, including an updated exam of the patient. There are NO changes in the patient's condition. Risks, benefits, and alternatives have been discussed and questions answered. Patient agrees to proceed with procedure.
[2024-03-15] MEDS: LACTATED RINGERS 1,000 ML 30 ML IV CONT (07:45)
--- NOTE | 2024-03-15 08:51 | WPDANESEPPF ---
Anes - Initial Pre Proc Eval Procedure: Operation Date: 03/15/24 09:15 Proposed Procedures p Urethral Sling - Frandy Mays MD Date/Time: 03/15/24 08:51 Surgeon: Frandy Mays MD Pre Op Diagnosis: stress incont Patient Data Age: 43 Gender: F Height: 1.7 m Weight: 97.4 kg Last Vital Signs Temp 97.2 F L 03/15/24 07:26 Pulse 68 03/15/24 07:26 Resp 18 03/15/24 07:26 BP 99/56 L 03/15/24 07:26 Pulse Ox 100 03/15/24 07:26 O2 Del Method Room Air 03/15/24 07:26 Allergies Allergy/AdvReac Type Severity Reaction Status Date / Time Penicillins Allergy Intermediate Rash Verified 03/15/24 07:52 Home Medications Medication Instructions Recorded Confirmed Type ondansetron 4 mg disintegrating 4 mg PO Q6H PRN vertigo #30 tabs 08/06/21 03/07/24 Rx tablet duloxetine 30 mg capsule,delayed 30 mg PO DAILY #90 caps 12/22/21 03/07/24 Rx release eletriptan 20 mg tablet See Rx Instructions .Route 05/09/22 03/07/24 Rx .COMPLEX #6 tabs montelukast 10 mg tablet 10 mg PO DAILY #30 tabs 12/07/22 03/07/24 Rx semaglutide (weight loss) 2.4 2.4 mg subcut WEEKLY 10/10/23 03/15/24 History mg/0.75 mL subcutaneous pen injector (Wegovy) hydrocodone 5 mg-acetaminophen 325 1 tablet PO Q6H PRN pain #20 tabs 03/15/24 Rx mg tablet Patient hx anesthesia problems: none Family hx anesthesia problems: none Results Review: All pre-operative results and documents have been reviewed as part of the pre-operative evaluation. [facility] Past Medical History Medical History BPPV (benign paroxysmal positional vertigo) Generalized anxiety disorder Hyperlipidemia Migraines Vitamin D deficiency Surgical History Surgical History History of section History of cholecystectomy Family History Family History Other Diabetes mellitus Family history of cardiovascular disease Hypertension Social History Social History Smoking status: Never smoker Second hand tobacco smoke exposure: No Alcohol intake: current Alcohol use details: on occasion Substance use: never Substance use type: does not use Living arrangements: with family Spiritual care concerns: No Anes - Eval Final PreProcedure Day of Procedure 03/15/24 08:51 Patient weight: overweight Heart: regular rate and rhythm Lungs: clear to auscultation Airway: Mallampati scale and special considerations (Lower perm retainer. ) Neurological: alert and oriented Last oral intake: >/= 8 hours ASA classification: II Emergent: no Anesthetic plan: proceed Anesthesia type and monitoring: general LMA and standard monitoring Results Review: All pre-operative results and documents have been reviewed as part of the pre-operative evaluation. Pt on GLP1 and has been held for 14 days. Informed Consent: The patient's anesthetic plan and its attendant risks and benefits were discussed with the patient/family/POA. Questions were solicited and answers provided to the satisfaction of the patient/family/POA.
[2024-03-15] MEDS: ceFAZolin 2 GM/D5W 50 ML 2 GM/50 ML BAG IVPB (09:07)
[2024-03-15] MEDS: BUPIVACAINE/EPINEPHRINE 0.5% 50 ML VIAL 10 ML INFILTRATE (09:27)
--- NOTE | 2024-03-15 09:46 | W.PM.PROC2 ---
Procedure Note - Detailed Date of Procedure 03/15/24 Pre-op Diagnosis stress incont Post-op Diagnosis Same Procedure Performed mid urethral sling cystoscopy Surgeon Frandy Mays MD Anesthesia General Indications This is a female with confirm stress urinary incontinence. She desires surgical correction. She understands the risks of bleeding, infection, injury to the urinary tract, vaginal mesh extrusion, urinary tract mesh erosion, obstructive voiding requiring a secondary procedure, hip and leg pain, dyspareunia, inability to improve overactive bladder symptoms. She agrees to proceed. Description of Procedure She was correctly identified. Informed consent obtained. She was brought the operating room. She was given appropriate anesthesia. She was given appropriate perioperative antibiotics. A time-out performed. I marked out the site of the inner thigh incisions. I anesthetized the skin and made those incisions. I anesthetized the anterior vaginal wall over the mid urethra. I made a 1 cm incision. I dissected out laterally taking great care not to injure the refilled vaginal wall. I passed the helical trocars. First on the left. Then on the right. I did this from the thigh incision towards the vaginal incision. The sling was connected to the trocars and brought out through the thigh incision. I tensioned the sling appropriately. I cut and the plastic sheaths. I then closed the incision with 2 0 Vicryl. On cystoscopy there is no tumors or surgical artifact. There was no surgical artifact in the urethra. I cut the excess sling material. Close incisions with glue. She was awakened and transferred to the PACU in stable condition. Implants Urethral sling Estimated Blood Loss 20 Drains No Packing No Pathology None sent Complications No immediate complications Condition Stable Disposition PACU
--- NOTE | 2024-03-15 10:48 | SUR.PHASEII ---
Pt ambulated to bathroom and voided unmeasured amt of clear yellow urine without difficulty.
== END 2024-03-15 11:16 | disposition home or self-care (01) ==
PROVIDERS: Visit Provider Urology
PROC: (CPT 57288; principal; 2024-03-15 09:15)
DX: N39.3 Stress incontinence (female) (male) (principal); E78.5 Hyperlipidemia, unspecified; E55.9 Vitamin D deficiency, unspecified; F41.1 Generalized anxiety disorder; Z79.85 Long-term (current) use of injectable non-insulin antidiabetic drugs
CPT/HCPCS: 57288; C1771; J0690; J1100; J1885; J2003; J2250; J2405; J2704; J3010; J7120

== ENCOUNTER 2024-04-30 11:34 | Outpatient (CLI) | payer OTHER, SELFPAY ==
[2024-04-30 12:14] LABS: Hematocrit 40.5 % (37.0-47.0); Hemoglobin 13.3 g/dL (12.0-15.0); Mean Corpuscular HGB Conc 32.8 g/dl (32-36); Mean Corpuscular Hemoglobin 30.2 pg (26-34); Mean Platelet Volume 9.4 fl (7.4-10.4); Platelet Count Result 394 k/mm3 (150-375); Red Cell Distribution Width 12.6 % (11.5-14.5); White Blood Count 6.8 K/mm3 (4.5-10.0)
[2024-04-30 12:24] LABS: Albumin Level 4.5 g/dL (3.5-5.1); Anion Gap 6 mmol/L (4-12); Blood Urea Nitrogen 12 mg/dL (7-17); Calcium 9.3 mg/dL (8.4-10.2); Carbon Dioxide 30 mmol/L (22-30); Chloride 103 mmol/L (98-107); Estimated Glomerular Filt Rate > 60; Glucose 89 mg/dL (65-110); Potassium 4.7 mmol/L (3.4-5.0); Sodium 139 mmol/L (137-145)
[2024-04-30 12:25] LABS: Iron 123 ug/dL (37-170)
[2024-04-30 12:31] LABS: Prealbumin 19.4 mg/dL (17.6-36.0)
[2024-05-03 20:18] LABS: Vitamin B1 8 nmol/L (8-30)
== END 2024-04-30 11:35 | disposition home or self-care (01) ==
LOC: ANHLAB 11:37
PROVIDERS: Visit Provider Surgery Plastic and Reconstructive Surgery
DX: R63.4 Abnormal weight loss (principal); Z68.36 Body mass index [BMI] 36.0-36.9, adult
CPT/HCPCS: 36415; 80048; 82040; 83540; 84134; 84425; 85027

== ENCOUNTER 2024-05-28 01:26 | Day surgery (SDC) | payer OTHER, SELFPAY ==
[2024-05-21 09:50] VITALS: BMI 33.0
--- NOTE | 2024-05-21 09:56 | PC.NURSE ---
Report to the Outpatient Waiting Room, entrance under the green pavilion located off [facility], at time _0600_ on date _[id number]_. Planned Procedure Time: _0730_.? Time changes happen often and if your time is changed the preop area will call you the afternoon before. - You and your visitor will be asked to self-screen and do not enter if you have any COVID symptoms. Please call surgeon if you need to reschedule. - A mask is optional within the hospital at this time. Patients may have clear liquids (water, carbonated beverages, clear teas, apple juice) until 3 hours prior to surgery with a maximum of 20 ounces. - No food from midnight until time of surgery and no smoking. This includes no chewing gum, candy or mints. Take only the following medications with a SIP of water on the morning of surgery: ____Duloxetine DO NOT STOP ANY OF YOUR OTHER PRESCRIPTION MEDICATIONS PRIOR TO SURGERY EXCEPT THE FOLLOWING Medications to discontinue per physician Patient stopped Wegovy [phone] Date to take last dose Please no make-up, nail bengali, hairspray, perfume, deodorant, or body powder the day of surgery.? No jewelry (including any body piercings) or valuables the day of surgery, leave them at home.? Please take a shower or bath the night before, or the morning of, surgery with an antibacterial soap.? Wear comfortable, loose fitting clothing.? - Jewelry must be removed prior to entering the operating room.? Rings and piercings that are not removed may be cut off. - The hospital will not accept responsibility for valuables.? - Please leave all valuables, including medications, at home the day of surgery. If you are going home after surgery, a licensed gravel truck driver must drive you home.? - NO public transportation without another adult if you receive anesthesia. - We recommend that an adult stay with you for 24 hours following discharge. - We also recommend that you do not drive, make important decision, drink alcoholic beverages, or take any drugs that were not prescribed by your health care provider for at least 24 hours after your discharge time. Follow any additional instructions given to you from your surgeon. Telephone instructions given to __Bree__and asked if any additional questions and then verbalized understanding. Patient advised to call surgeon office or pre surgery nurse liaison [phone] if any additional questions.
[2024-05-28] VITALS (12 sets, daily range): BP systolic 113–136; BP diastolic 71–90; PULSE 65–104; RESP 10–18; TEMP 36.2–37.1; O2SAT 92–100
[2024-05-28 06:28] LABS: Urine Cotinine NEGATIVE
[2024-05-28] MEDS: LACTATED RINGERS 1,000 ML 30 ML IV CONT ×2 (06:30→15:59)
--- NOTE | 2024-05-28 06:47 | WPDANESEPPF ---
Anes - Initial Pre Proc Eval Procedure: Operation Date: 05/28/24 07:30 Proposed Procedures p Belt Lipectomy, - Perry Webber MD s Lani De Helen Abdominoplasty with Liposuction, - Perry Webber MD s Bilateral Medial Thigh Lift - Perry Webber MD Date/Time: 05/28/24 06:47 Surgeon: Perry Webber MD Pre Op Diagnosis: skin laxity Patient Data Age: 43 Gender: F Height: 1.7 m Weight: 95.5 kg Allergies Allergy/AdvReac Type Severity Reaction Status Date / Time Penicillins Allergy Intermediate Rash Verified 05/21/24 09:48 Home Medications ?Medication ?Instructions ?Recorded ?Confirmed ?Type ondansetron 4 mg disintegrating 4 mg PO Q6H PRN vertigo #30 tabs 08/06/21 05/21/24 Rx tablet duloxetine 30 mg capsule,delayed 30 mg PO DAILY #90 caps 12/22/21 05/21/24 Rx release eletriptan 20 mg tablet See Rx Instructions .Route 05/09/22 05/21/24 Rx .COMPLEX #6 tabs montelukast 10 mg tablet 10 mg PO DAILY #30 tabs 12/07/22 05/21/24 Rx semaglutide (weight loss) 2.4 2.4 mg subcut WEEKLY 10/10/23 05/21/24 History mg/0.75 mL subcutaneous pen injector (Wegovy) hydrocodone 5 mg-acetaminophen 325 1 tablet PO Q6H PRN pain #20 tabs 03/15/24 05/21/24 Rx mg tablet Laboratory Tests 05/28/24 06:11 Cotinine Negative Patient hx anesthesia problems: none Family hx anesthesia problems: none Results Review: All pre-operative results and documents have been reviewed as part of the pre-operative evaluation. [facility] Past Medical History Medical History BPPV (benign paroxysmal positional vertigo) Vitamin D deficiency Migraines Generalized anxiety disorder Hyperlipidemia Surgical History Surgical History History of section History of cholecystectomy Family History Family History Other Diabetes mellitus Family history of cardiovascular disease Hypertension Social History Social History Smoking status: Never smoker Second hand tobacco smoke exposure: No Alcohol intake: current Alcohol use details: on occasion Substance use: never Substance use type: does not use Living arrangements: with family Spiritual care concerns: No Anes - Eval Final PreProcedure Day of Procedure 05/28/24 06:47 Patient weight: obese Heart: regular rate and rhythm Lungs: clear to auscultation Airway: Mallampati scale class II Neurological: alert and oriented Last oral intake: >/= 8 hours ASA classification: II Emergent: no Anesthetic plan: proceed Anesthesia type and monitoring: general ETT and standard monitoring Results Review: All pre-operative results and documents have been reviewed as part of the pre-operative evaluation. Informed Consent: The patient's anesthetic plan and its attendant risks and benefits were discussed with the patient/family/POA. Questions were solicited and answers provided to the satisfaction of the patient/family/POA.
--- NOTE | 2024-05-28 07:18 | WPDHPUPDATE1 ---
History and Physical Update Update Date/Time: 05/28/24 07:18 History and Physical has been reviewed, including an updated exam of the patient. There are NO changes in the patient's condition. Risks, benefits, and alternatives have been discussed and questions answered. Patient agrees to proceed with procedure.
--- NOTE | 2024-05-28 07:18 | W.PM.PROC2 ---
Procedure Note - Detailed Date of Procedure 05/28/24 Pre-op Diagnosis skin laxity Post-op Diagnosis Same Procedure Performed 1. Slhii-[id number] belt lipectomy with suction lipectomy 2. Bilateral medial thigh lift Surgeon Perry Webber MD Anesthesia General Findings Tissue removed: 4931 grams Lipoaspirate: 6,100 cc Diastasis: 8 cm Description of Procedure They are here today for the above procedures. Previously and again today the risks, benefits, alternatives were discussed in extensive detail. I wanted them to be very realistic about the risks involved as well as expectations. We discussed aftercare and what to monitor for. I was very upfront about the risks of wound breakdown leading to loss of skin, open wounds, and need for additional procedures with permanent abdominal deformity. We discussed scar location / length in extensive detail. We discussed DVT/PE risks and management. Made sure answered all of their questions to their satisfaction today and consent was obtained. They were marked in the preoperative holding area with their verification. The patient was taken to the operating room. Anesthesia was provided by anesthesiology. A Mora catheter was started. Posterior Placed prone on the operating room table with care taken to protect from injury. Prepped and draped in a standard sterile fashion. A surgical time-out was taken. Stab incisions were made and tumescent solution was infiltrated. Once adequate time was allowed for hemostasis a 5mm basket and 4mm blue cannula were utilized to complete suction lipectomy based on S.A.F.E. technique in multiple planes and passes. Suction lipectomy continued to result based on pre-operative planning, intra-operative observation, and rolling pinch test which were in full agreement. A 10 blade was used to make the upper incision and dissection was continued inferior elevating what we necessary for closure. I placed patient in slight jackknife position and excised intervening tissue. This was closed with 3 point suture with 2-0 Vicryl followed 2-0 PDO strattafix, 3-0 stratafix ,running subcuticular 4-0 Monocryl, and tissue glue. Laterally dorota were placed for turning. Thighs Patient was then placed supine with care taken to protect from injury. Stab incisions were made and I tumesced with a tumescent solution. Once adequate time for hemostasis suction lipectomy was with a 5 mm basket cannula and 4mm blue based on S.A.F.E. technique. This was completed based on preoperative planning, intraoperative observation, and rolling pinch test which was in full agreement. I completely de-fatted the planned resection area and a strip avulsion technique was completed. Starting proximal to distal a 10 blade was used to excise the intervening skin and this was tacked as we proceed to ensure good closure. This was closed using a 2-0 Quill, 3-0 strata fix, running subcuticular 4-0 Monocryl, and tissue glue. Abdomen I placed the patient in a flexed position to verify the upper and lower markings would reach. I then placed supine. A thorough abdominal examination was completed. Stab incisions were made and tumescent solution infiltrated. Stab incisions were made and tumescent solution was infiltrated. Once adequate time was allowed for hemostasis a 5mm basket and 4mm blue cannula were utilized to complete suction lipectomy based on S.A.F.E. technique in multiple planes and passes. Suction lipectomy continued to result based on pre-operative planning, intra-operative observation, and rolling pinch test which were in full agreement. A 10 blade was used to make the upper incision as well as vertical. I continued dissection down to the level of fascia. Elevated just what was necessary for repair of the diastasis. I then again flexed the bed to verify the upper skin flap would reach the lower markings without tension. Once verified I placed her supine once again and a 10 blade used to make the lower incision. I elevated up to level the umbilicus and left the umbilicus intact on a well-vascularized stalk. The intervening tissue was removed. A 2 mm blunt cannula with 0.5% bupivacaine was injected deep to the fascia bilaterally. I plicated the diastasis recti using 0 PDO Stratafix barbed suture. This was in 2 separate layers using 2 separate sutures as well. After the patient was flexed (below) plicated the fascia with 0 PDO Stratafix in two separate layers. The patient was flexed and starting from superior to inferior began plication using 2-0 Vicryl to obliterate all space in a standard progressive tension fashion. At the umbilicus I marked out the location of the skin and inset this with 3-0 Monocryl and 4-0 Vicryl. I continued the remainder of the plication using 2-0 Vicryl until I reached my lower planned scar line. I trimmed any excess skin of the upper flap making sure this was a tension-free closure. 15 Royce drain was placed. I then approximated using a 3 point suture with 2-0 Vicryl followed by 2-0 PDO Stratafix, 3-0 Stratafix ,running subcuticular 4-0 Monocryl, and tissue glue. Fluffs and an abdominal binder and dylan wraps were placed. The patient was transferred to the bed in a flexed position. Awoken and taken to the PACU without difficulty. All instrument and sponge counts were correct at the end of the case. Estimated Blood Loss 150 Drains Yes (15 royce) Packing No Pathology None sent Complications No immediate complications Condition Stable Disposition PACU
--- NOTE | 2024-05-28 07:21 | WPDANESEPPF ---
Anes - Initial Pre Proc Eval Procedure: Operation Date: 05/28/24 07:30 Proposed Procedures p Belt Lipectomy, - Perry Webber MD s Lani De Helen Abdominoplasty with Liposuction, - Perry Webber MD s Bilateral Medial Thigh Lift - Perry Webber MD Date/Time: 05/28/24 07:21 Surgeon: Perry Webber MD Pre Op Diagnosis: skin laxity Patient Data Age: 43 Gender: F Height: 1.7 m Weight: 95.5 kg Allergies Allergy/AdvReac Type Severity Reaction Status Date / Time Penicillins Allergy Intermediate Rash Verified 05/21/24 09:48 Home Medications ?Medication ?Instructions ?Recorded ?Confirmed ?Type ondansetron 4 mg disintegrating 4 mg PO Q6H PRN vertigo #30 tabs 08/06/21 05/21/24 Rx tablet duloxetine 30 mg capsule,delayed 30 mg PO DAILY #90 caps 12/22/21 05/28/24 Rx release eletriptan 20 mg tablet See Rx Instructions .Route 05/09/22 05/21/24 Rx .COMPLEX #6 tabs montelukast 10 mg tablet 10 mg PO DAILY #30 tabs 12/07/22 05/28/24 Rx semaglutide (weight loss) 2.4 2.4 mg subcut WEEKLY 10/10/23 05/21/24 History mg/0.75 mL subcutaneous pen injector (Wegovy) hydrocodone 5 mg-acetaminophen 325 1 tablet PO Q6H PRN pain #20 tabs 03/15/24 05/21/24 Rx mg tablet Laboratory Tests 05/28/24 06:11 Cotinine Negative Patient hx anesthesia problems: none Family hx anesthesia problems: none Results Review: All pre-operative results and documents have been reviewed as part of the pre-operative evaluation. [facility] Past Medical History Medical History BPPV (benign paroxysmal positional vertigo) Vitamin D deficiency Migraines Generalized anxiety disorder Hyperlipidemia Surgical History Surgical History History of section History of cholecystectomy Family History Family History Other Diabetes mellitus Family history of cardiovascular disease Hypertension Social History Social History Smoking status: Never smoker Second hand tobacco smoke exposure: No Alcohol intake: current Alcohol use details: on occasion Substance use: never Substance use type: does not use Living arrangements: with family Spiritual care concerns: No Anes - Eval Final PreProcedure Day of Procedure 05/28/24 07:21 Patient weight: obese Heart: regular rate and rhythm Lungs: clear to auscultation Airway: Mallampati scale class II Neurological: alert and oriented Last oral intake: >/= 8 hours ASA classification: II Emergent: no Anesthetic plan: proceed Anesthesia type and monitoring: general ETT and standard monitoring Results Review: All pre-operative results and documents have been reviewed as part of the pre-operative evaluation. Informed Consent: The patient's anesthetic plan and its attendant risks and benefits were discussed with the patient/family/POA. Questions were solicited and answers provided to the satisfaction of the patient/family/POA.
[2024-05-28] MEDS: ceFAZolin 2 GM/D5W 50 ML 2 GM/50 ML BAG IVPB ×2 (07:26→11:26)
--- NOTE | 2024-05-28 07:26 | WPDHPUPDATE1 ---
History and Physical Update Update Date/Time: 05/28/24 07:26 History and Physical has been reviewed, including an updated exam of the patient. There are NO changes in the patient's condition. Risks, benefits, and alternatives have been discussed and questions answered. Patient agrees to proceed with procedure.
--- NOTE | 2024-05-28 07:54 | SUR.PREOP ---
PT APPLIED SCOPALAMINE PATCH RT POSTERIOR EAR LAST NIGHT.
[2024-05-28 07:56] LABS: BEDSIDEPREGUCG Negative (Negative)
[2024-05-28] MEDS: BUPIVACAINE/EPINEPHRINE 0.5% 50 ML VIAL 60 ML INFILTRATE (08:23)
--- NOTE | 2024-05-28 10:05 | SUR.OPER ---
Bovie pad moved to right flank during bilateral medial thigh lift
[2024-05-28] MEDS: LACTATED RINGERS IRRIG 1,000 ML, LIDOCAINE 1% LOCAL INJ 50 ML, EPINEPHrine HCL INJ 1 MG... INFILTRATE (10:13)
--- NOTE | 2024-05-28 13:14 | SUR.OPER ---
Bovie Pad moved to left anterior thigh for abdominoplasty Lani Cervantes procedure
[2024-05-28] MEDS: HYDROmorphone HCL INJ (*CRX) 1 MG/ML SYR 0.25 MG IV PUSH ×4 (16:39→17:14)
[2024-05-28] MEDS: KETOROLAC 10 MG TABLET PO ×2 (18:22→22:59)
[2024-05-28] MEDS: carisoprodoL (*CRX) 350 MG TABLET PO ×2 (18:22→22:59)
--- NOTE | 2024-05-28 18:26 | ADMGEN ---
This patient, Bree Donaldson, was admitted to Medical Room 342-01. Patient/family oriented to hospital policies and general routines including ID bracelet, bed and alarms, visiting hours, pain management, procedures, bathroom and other care routines, personal items, smoking policy, room service/diet, and visiting hours. Information on how to activate the Rapid Response Team has been discussed. Patient/Family are encouraged to report perceived risks to care and to ask questions if they do not understand what they are told or what they should do.
[2024-05-28] MEDS: oxyCODONE/ACETAMINOPHEN (*CRX) 5-325 MG TABLET PO (18:38)
[2024-05-28] MEDS: LACTATED RINGERS 1,000 ML 125 ML IV CONT (18:40)
[2024-05-28] MEDS: ONDANSETRON INJ 4 MG/2 ML VIAL IV PUSH ×2 (19:00→21:08)
[2024-05-28] MEDS: MORPHINE SULFATE (*CRX) 2 MG/ML INJ IV PUSH ×2 (21:06→22:58)
[2024-05-28] MEDS: DOCUSATE SODIUM 100 MG CAPSULE PO (21:08)
[2024-05-28] MEDS: ENOXAPARIN 40 MG/0.4 ML SYRINGE SUB-Q (22:59)
[2024-05-29] VITALS: BP 120/69; PULSE 82; RESP 18; TEMP 37.1; O2SAT 95
[2024-05-29] MEDS: MORPHINE SULFATE (*CRX) 2 MG/ML INJ IV PUSH (02:09)
[2024-05-29] MEDS: diazePAM (*CRX) 5 MG TABLET PO (02:09)
[2024-05-29] MEDS: KETOROLAC 10 MG TABLET PO ×2 (05:15→11:22)
[2024-05-29] MEDS: carisoprodoL (*CRX) 350 MG TABLET PO ×2 (05:16→11:23)
[2024-05-29] MEDS: oxyCODONE/ACETAMINOPHEN (*CRX) 5-325 MG TABLET PO ×2 (05:16→11:21)
[2024-05-29 05:47] VITALS: BP 103/57; PULSE 82; RESP 18; TEMP 36.8; O2SAT 95
--- NOTE | 2024-05-29 06:51 | WPDPN ---
Progress Note: A&P Assessment and Plan (1) Skin laxity: Code(s): L57.4 - Cutis laxa senilis Status: Acute Assessment and Plan: Doing well after wufsz-de-hrz belt lipectomy with suction lipectomy and bilateral medial thigh lift. Will discharge home. Today we had a lengthy discussion about the care. Activity limitations. What to monitor for. What is an emergency and when to dial 911 / proceed to the ER. This was a lengthy open ended conversation making sure they were well informed. Answered all their questions. They voiced a clear understanding. Will discharge home. Call with any questions or concerns in the meantime. (2) Localized adiposity: Code(s): E65 - Localized adiposity Status: Acute Subjective Date/time seen: 05/29/24 06:51 Interval history: Doing well after ffnsn-rh-ebw belt lipectomy with suction lipectomy and bilateral medial thigh lift. Ambulating. Pain controlled. No nausea / vomiting. No fevers / chills. No shortness of breast. No chest pain. No calf tenderness. Review of Systems Review of Systems: All systems reviewed & are unremarkable except as noted in HPI and below Exam Narrative: Alert & Oriented NOD Respiratory unlabored Abdomen is healing well. No signs of infection. No hematoma. No seroma. Good color and capillary refill. Thighs healing well. Soft. No hematoma. No seroma. No calf tenderness. Negative Fidel's Objective Data Vital Signs Vital Signs: Vital Signs - 24 hr 05/28/24 15:59 05/28/24 16:04 05/28/24 16:10 Temperature 37.1 C Pulse Rate 104 H 98 102 H Respiratory Rate 13 13 13 Blood Pressure 114/86 125/77 125/75 Pulse Oximetry 95 97 98 Oxygen Delivery Simple Face Mask Simple Face Mask Simple Face Mask Oxygen Flow Rate 8 8 8 05/28/24 16:24 05/28/24 16:35 05/28/24 16:50 Temperature Pulse Rate 98 97 99 Respiratory Rate 14 14 13 Blood Pressure 118/73 136/87 128/90 Pulse Oximetry 98 93 99 Oxygen Delivery Simple Face Mask Simple Face Mask Simple Face Mask Oxygen Flow Rate 8 8 8 05/28/24 17:05 05/28/24 17:20 05/28/24 17:35 Temperature Pulse Rate 98 85 81 Respiratory Rate 14 10 L 12 Blood Pressure 126/84 114/79 118/80 Pulse Oximetry 92 93 93 Oxygen Delivery Room Air Room Air Room Air Oxygen Flow Rate 05/28/24 18:50 05/28/24 20:25 05/29/24 00:00 Temperature 36.2 C L 36.6 C 37.1 C Pulse Rate 82 81 82 Respiratory Rate 18 16 18 Blood Pressure 122/79 113/71 120/69 Pulse Oximetry 94 97 95 Oxygen Delivery Oxygen Flow Rate 05/29/24 05:47 Temperature 36.8 C Pulse Rate 82 Respiratory Rate 18 Blood Pressure 103/57 L Pulse Oximetry 95 Oxygen Delivery Oxygen Flow Rate Intake/Output Intake/Output: Intake & Output 05/26/24 05/27/24 05/28/24 05/29/24 23:59 23:59 23:59 23:59 Intake Total 600 350 Output Total 1960 Balance 600 -1610 Meds/Results Medications: Active Medications Generic Name Dose Route Start Last Admin Trade Name Freq PRN Reason Stop Dose Admin Carisoprodol 350 mg 05/28/24 18:00 05/29/24 05:16 Carisoprodol (*Crx) 350 Mg Tablet PO 350 mg Q6HR BHARAT Administration Diazepam 5 mg 05/28/24 17:41 05/29/24 02:09 Diazepam (*Crx) 5 Mg Tablet PO 5 mg TID PRN Administration Anxiety Docusate Sodium 100 mg 05/28/24 21:00 05/28/24 21:08 Docusate Sodium 100 Mg Capsule PO 100 mg Q12HR BHARAT Administration Duloxetine HCl 30 mg 05/29/24 09:00 Duloxetine Hcl 30 Mg Capsule.Dr PO DAILY BHARAT Enoxaparin Sodium 40 mg 05/28/24 22:00 05/28/24 22:59 Enoxaparin 40 Mg/0.4 Ml Syringe SUB-Q 40 mg DAILY BHARAT Administration Lactated Ringer's 1,000 mls @ 125 mls/hr 05/28/24 17:41 05/28/24 18:40 Lr - Lactated Ringers Iv IV CONT 125 mls/hr .Q8H BHARAT Administration Ketorolac Tromethamine 10 mg 05/28/24 18:00 05/29/24 05:15 Ketorolac 10 Mg Tablet PO 05/30/24 12:01 10 mg Q6HR BHARAT Administration Miscellaneous Information 1 each 05/29/24 00:01 Eletriptan Is Nonform; Can Pt Use From Home XX 06/28/24 00:00 CLARIFY BHARAT Montelukast Sodium 10 mg 05/29/24 09:00 Montelukast Sodium 10 Mg Tablet PO DAILY BHARAT Morphine Sulfate 2 mg 05/28/24 17:41 05/29/24 02:09 Morphine Sulfate (*Crx) 2 Mg/Ml Inj IV PUSH 2 mg Q2H PRN Administration Pain Non-Formulary Medication 0 mg 05/28/24 17:41 Eletriptan .ROUTE 06/27/24 17:40 .COMPLEX BHARAT Ondansetron HCl 4 mg 05/28/24 17:41 Ondansetron Hcl Odt 4 Mg Tablet PO Q6H PRN vertigo Ondansetron HCl 4 mg 05/28/24 17:41 05/28/24 21:08 Ondansetron Inj 4 Mg/2 Ml Vial IV PUSH 4 mg Q6H PRN Administration Nausea Oxycodone/Acetaminophen 1 - 2 tablet 05/28/24 17:41 05/29/24 05:16 Oxycodone/Acetaminophen (*Crx) 5-325 Mg Tablet PO 1 tablet Q6H PRN Administration Pain Rated 3-10 Labs Labs: Laboratory Results - last 24 hr 05/28/24 06:30 POC Urine HCG, Qual Negative
--- NOTE | 2024-05-29 06:53 | P.DS_ITS ---
DS: Admitting Diagnosis Discharge Date 05/29/2024 Admitting Diagnosis Skin laxity Localized adiposity DS: Discharge Diagnosis Discharge Diagnosis (1) Skin laxity: Code(s): L57.4 - Cutis laxa senilis Status: Acute (2) Localized adiposity: Code(s): E65 - Localized adiposity Status: Acute DS: Summary Hospital Course Hospital Course: She underwent felqm-ss-yld belt lipectomy with suction lipectomy and bilateral medial thigh lift. Kept overnight for monitoring. Postoperatively has done well. Will plan for discharge home today. Time Spent with Patient Time attestation: Total time spent providing and/or coordinating discharge services: DS: Data Data Completed and Pending Labs on day of discharge: Labs from last 24 hours 05/28/24 06:30 POC Urine HCG, Qual Negative Discharge Plan Discharge Patient Disposition: Home, Self-Care Discharge Instructions: POST OPERATIVE DISCHARGE INSTRUCTIONS PERRY WEBBER M.D. [facility] [place] [address] * No driving for 24 hours after anesthesia and while you are taking pain medication. * Take all prescribed medication as directed * Diet as tolerated. * No lifting or activity that raises blood pressure for 48 hours. * Regular walking / ambulation. * May shower 24 hours after surgery. Once you shower do not take pain medication before showering as the combination of medication and heat may cause you to feel dizzy or pass out. * No pools or tubs for 2 weeks. * Slowly stand up straight as tolerated. * No straining or lifting more than 20 pounds. * If no bowel movement within 24 hours may use laxative. * Call with any questions or concerns. * Dressing Care: Continue abdominal binder / foam / wraps 23 hours per day. If you have any questions or concerns, please call the office . If it is after hours you will be directed to the orientation and mobility instructor exchange. Shortness of breath, chest pain, or other medical emergency dial 911 / proceed to the Emergency Room. Patient Language: [place]i Stand Alone Forms: General Discharge Instructions Follow-up/Referrals: Perry Webber MD [Physician] - Other (Tomorrow 05/29/2024) Discharge Medications: Continued ondansetron 4 mg tablet,disintegrating 4 mg PO Q6H PRN (Reason: vertigo) Qty: 30 2RF hydrocodone-acetaminophen 5-325 mg tablet 1 tablet PO Q6H PRN (Reason: pain) Qty: 20 0RF Wegovy 2.4 mg/0.75 mL pen injector 2.4 mg SUBCUT WEEKLY Rx Instructions: takes on Monday duloxetine 30 mg capsule,delayed release(DR/EC) 30 mg PO DAILY Qty: 90 0RF eletriptan 20 mg tablet See Rx Instructions .ROUTE .COMPLEX Qty: 6 4RF Dose Instruction: TAKE ONE TABLET BY MOUTH AT THE ONSET OF HEADACHE; IF NO RELIEF, MAY REPEAT ONE TABLET BY MOUTH AFTER AT LEAST TWO HOURS. MAXIMUM OF FOUR TABLETS PER 24 HOURS. Rx Instructions: TAKE ONE TABLET BY MOUTH AT THE ONSET OF HEADACHE; IF NO RELIEF, MAY REPEAT ONE TABLET BY MOUTH AFTER AT LEAST TWO HOURS. MAXIMUM OF FOUR TABLETS PER 24 HOURS. montelukast 10 mg tablet 10 mg PO DAILY Qty: 30 0RF Rx Instructions: LAST REFILL UNTIL SEEN
[2024-05-29] MEDS: DULoxetine HCL 30 MG CAPSULE.DR PO (09:26)
[2024-05-29] MEDS: DOCUSATE SODIUM 100 MG CAPSULE PO (09:26)
[2024-05-29] MEDS: ONDANSETRON INJ 4 MG/2 ML VIAL IV PUSH (09:26)
[2024-05-29] MEDS: MONTELUKAST SODIUM 10 MG TABLET PO (09:27)
[2024-05-29] MEDS: ENOXAPARIN 40 MG/0.4 ML SYRINGE SUB-Q (09:27)
[2024-05-29] MEDS: INFLUENZA TRIVALENT VACCINE 45 MCG/0.5 ML SYRINGE IM (11:31)
== END 2024-05-29 11:33 | disposition home or self-care (01) ==
LOC: ANHSURGERY 07:26 → ANH3MED 17:44
PROVIDERS: Visit Provider Surgery Plastic and Reconstructive Surgery
PROC: (CPT 15830; principal; 2024-05-28 07:30)
PROC: (CPT 15830; 2024-05-28 07:30)
PROC: (CPT 15832; 2024-05-28 07:30)
DX: Z41.1 Encounter for cosmetic surgery (principal); L57.4 Cutis laxa senilis; E65 Localized adiposity; Z23 Encounter for immunization; Z79.899 Other long term (current) drug therapy; E66.9 Obesity, unspecified; Z68.35 Body mass index [BMI] 35.0-35.9, adult
CPT/HCPCS: 15830; 15847; 15877; 15832; 80307; 90471; 90656; A9270; G0008; J0171; J0330; J0690; J1100; J1171; J1650; J2003; J2250; J2270; J2405; J2704; J3010; J7120